=== PATIENT | male | born 1935 | race Caucasian/White ===

== ENCOUNTER 2018-06-22 14:52 | Emergency (ER) | payer OTHER, BC ==
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
[2018-06-22 15:14] LABS: PLATELET COUNT 130 10^3/uL (150-400)
--- NOTE | 2018-06-22 15:16 | CPEKG ---
Heart Rate: 56 RR Interval: 1071 P-R Interval: 184 QRSD Interval: 102 QT Interval: 508 QTC Interval: 491 P [place]: -6 QRS [place]: 50 T Wave [place]: 218 EKG Severity - ABNORMAL ECG - EKG Impression: SINUS RHYTHM EKG Impression: PROBABLE LVH WITH SECONDARY REPOL ABNRM EKG Impression: BORDERLINE PROLONGED QT INTERVAL Electronically Signed By: Derek Retana 22-Jun-2018 18:32:34
[2018-06-22 17:55] VITALS: BP 155/59
== END 2018-06-22 17:55 | disposition home or self-care (01) ==
LOC: EDUNIT#
DX: E11.649 Type 2 diabetes mellitus with hypoglycemia without coma (principal); T38.3X5A Adverse effect of insulin and oral hypoglycemic [antidiabetic] drugs, initial encounter; I25.10 Atherosclerotic heart disease of native coronary artery without angina pectoris; I10 Essential (primary) hypertension; Z95.5 Presence of coronary angioplasty implant and graft; Z95.1 Presence of aortocoronary bypass graft
CPT/HCPCS: 82435-PO; 82565-PO; 82947-PO; 84132-PO; 84295-PO; 84484-PO; 84520-PO; 85014-PO